=== PATIENT | female | born 1950 | race Caucasian/White ===

== ENCOUNTER 2017-12-05 07:27 | Day surgery (SDC) | payer MEDICARE ==
[~2017-12-05 07:27] MED LIST: ASPI81CH; BENAML20/5 PO; CALCIUM + D SO1 EACH; CHOL10002 PO; VITAMIN B-1100 MG PO; ZOLP10 PO
[2017-12-07 11:07] LABS: Performing Lab SYMBIODX; Test Name HER2 FISH
== END 2017-12-05 23:04 | disposition home or self-care (01) ==
LOC: MOI US 07:27 → MOI MAM 07:45 → MOI US 07:45
PROVIDERS: Family Medicine
PROC: 0HBU3ZX Excision of Left Breast, Percutaneous Approach, Diagnostic (ICD-10-PCS; principal; 2017-12-05)
DX: C50.912 Malignant neoplasm of unspecified site of left female breast (principal); Z17.0 Estrogen receptor positive status [ER+]
CPT/HCPCS: 19083; 77065; 88305; 88360; A4648

== ENCOUNTER 2018-09-20 12:07 | Emergency (ER) | payer MEDICARE ==
[~2018-09-20] VITALS: Ht 165.1 cm; Wt 59.0 kg
[~2018-09-20 12:07] MED LIST changes: -ASPI81CH; +ASPI81CH PO; -CALCIUM + D SO1 EACH; +CALCIUM + D SO1 EACH PO
[2018-09-20 12:51] LABS: BASOPHILS ABSOLUTE AUTO 0.01 K/mm3 (0.00-0.23); BASOPHILS PERCENT AUTO 0 % (0-2); EOSINOPHILS PERCENT AUTO 0 % (0-6); Hematocrit 38.9 % (33.0-51.0); IMMATURE GRAN ABSOLUTE AUTO 0.03 K/mm3 (0.00-0.10); IMMATURE GRAN PERCENT AUTO 0 % (0-1); LYMPHOCYTES ABSOLUTE AUTO 1.43 K/mm3 (0.84-5.20); LYMPHOCYTES PERCENT AUTO 14 % (21-46); MONOCYTES ABSOLUTE AUTO 0.65 K/mm3 (0.16-1.47); MONOCYTES PERCENT AUTO 7 % (4-13); Mean Corpuscular HGB 30.4 pg (26.0-34.0); Mean Corpuscular HGB Conc 33.4 g/dL (31.5-36.5); Mean Corpuscular Volume 91 fL (80-100); Mean Platelet Volume 9.2 fL (9.1-12.4); NEUTROPHILS ABSOLUTE AUTO 7.83 K/mm3 (1.96-9.15); NEUTROPHILS PERCENT AUTO 79 % (41-73); Platelet Count 375 K/mm3 (150-400); RDW Coefficient Variation 13.2 % (11.7-14.2); RDW Standard Deviation 43.8 fL (35.1-46.3); Red Blood Cell Count 4.28 M/mm3 (3.80-5.20); White Blood Cell Count 9.95 K/mm3 (4.00-11.30)
[2018-09-20 13:19] LABS: Alanine Aminotransfer (ALT/SGP 38 U/L (12-78); Albumin, Blood 4.1 g/dL (3.4-5.0); Albumin/Globulin Ratio 1.1 (0.8-1.8); Alk Phos 95 U/L (50-136); Anion Gap 8 mmol/L (6-16); Aspartate Aminotrans (AST/SGOT 10 U/L (12-37); Bilirubin, Total 0.3 mg/dL (0.1-1.0); Blood Urea Nitrogen 23 mg/dL (8-24); Bun/Creatinine Ratio 25.8 (12.0-20.0); CO2, Blood 25 mmol/L (21-32); Calcium, Blood 9.7 mg/dL (8.5-10.1); Chloride, Blood 104 mmol/L (98-108); Creatinine, Blood 0.89 mg/dL (0.40-1.00); Globulin, Blood 3.6 g/dL (2.2-4.0); Glomerular Filtration Rate >60 (60-); Glucose, Blood 198 mg/dL (70-99); Potassium, Blood 3.5 mmol/L (3.5-5.5); Sodium, Blood 137 mmol/L (136-145); Total Protein, Blood 7.7 g/dL (6.4-8.2)
[2018-09-20 15:28] LABS: Source, Urine Clean Catch
[2018-09-20 15:39] LABS: Appearance, Urine Bloody (Clear); Bilirubin, Urine Neg (Neg); Blood, Urine 4+ (Neg); Color, Urine Red (P-Yellow); Glucose Qualitative, Urine Neg (Neg); Ketones, Urine Neg (Neg); Leukocyte Esterase, Urine Neg (Neg); Nitrite, Urine Neg (Neg); Protein, Urine 4+ (Neg); Specific Gravity, Urine 1.015 (1.003-1.022); Urobilinogen, Urine NORM (Normal)
[2018-09-20 16:08] LABS: Bacteria Rare /hpf; Red Blood Cells, Urine TNTC /hpf (0-2); Squamous Epithelial Cells Rare /hpf (Few)
== END 2018-09-20 16:49 | disposition home or self-care (01) ==
LOC: ER 12:07
PROVIDERS: Physician Assistant
DX: N28.1 Cyst of kidney, acquired (principal); E27.8 Other specified disorders of adrenal gland; R91.1 Solitary pulmonary nodule; I10 Essential (primary) hypertension; F17.200 Nicotine dependence, unspecified, uncomplicated; Z88.0 Allergy status to penicillin; Z79.899 Other long term (current) drug therapy; Z85.3 Personal history of malignant neoplasm of breast; Z85.51 Personal history of malignant neoplasm of bladder
CPT/HCPCS: 36415; 74176; 80053; 81001; 83690; 85025; 99284-25

== ENCOUNTER 2021-01-28 19:57 | Inpatient (IN) | payer MEDICARE ==
[~2021-01-28] VITALS: Ht 167.6 cm; Wt 68.8 kg
[~2021-01-28 19:57] MED LIST changes: -ASPI81CH PO; +Aspir 8181 MG PO
[2021-01-28 20:28] LABS: Base Excess Venous 0.1 mmol/L; Bicarbonate Venous 22.8 mmol/L (24.0-30.0); PCO2 Venous 44.1 mmHg (38-42); PO2 Venous 27.8 mmHg (38-42); pH Blood Venous 7.37 (7.34-7.37)
[2021-01-28 20:59] LABS: BASOPHILS ABSOLUTE AUTO 0.04 K/mm3 (0.00-0.23); BASOPHILS PERCENT AUTO 0 % (0-2); Hematocrit 48.2 % (33.0-51.0); Hemoglobin 15.3 g/dL (11.5-16.0); Mean Corpuscular HGB 28.4 pg (26.0-34.0); Mean Corpuscular HGB Conc 31.7 g/dL (31.5-36.5); Mean Corpuscular Volume 90 fL (80-100); Mean Platelet Volume 10.4 fL (9.1-12.4); NRBC ABSOLUTE 0.22 K/mm3 (0.00-0.02); NRBC Auto 1.6 /100 WBC (0.0-0.2); Platelet Count 502 K/mm3 (150-400); RDW Coefficient Variation 15.3 % (11.7-14.2); RDW Standard Deviation 50.2 fL (35.1-46.3); Red Blood Cell Count 5.38 M/mm3 (3.80-5.20); White Blood Cell Count 13.98 K/mm3 (4.00-11.30)
[2021-01-28 21:03] LABS: EOSINOPHILS PERCENT AUTO 0 % (0-6); IMMATURE GRAN PERCENT AUTO 1 % (0-1); LYMPHOCYTES ABSOLUTE AUTO 0.97 K/mm3 (0.84-5.20); LYMPHOCYTES PERCENT AUTO 7 % (21-46); MONOCYTES ABSOLUTE AUTO 0.57 K/mm3 (0.16-1.47); MONOCYTES PERCENT AUTO 4 % (4-13); NEUTROPHILS PERCENT AUTO 87 % (41-73)
[2021-01-28] MEDS ORDERED: AMLODIPINE-BEN1 EAC2 PO (21:07)
[2021-01-28] MEDS ORDERED: LETROZOLE2.5 M3 PO (21:07)
[2021-01-28] MEDS ORDERED: VITAMIN D31000 UNI1 PO (21:09)
[2021-01-28 22:52] LABS: Appearance, Urine Clear (Clear); Bilirubin, Urine 1+ (Neg); Color, Urine Amber (P-Yellow); Glucose Qualitative, Urine Neg (Neg); Ketones, Urine Neg (Neg); Leukocyte Esterase, Urine 1+ (Neg); Nitrite, Urine Neg (Neg); Protein, Urine 3+ (Neg); Source, Urine Catheter; Urobilinogen, Urine 1+ (Normal)
[2021-01-28 22:54] LABS: Blood, Urine 2+ (Neg)
[2021-01-28 22:55] LABS: Amorphous Light (0-Heavy); Bacteria Few /hpf; Red Blood Cells, Urine 0-2 /hpf (0-2); Squamous Epithelial Cells Few /hpf (Few); White Blood Cells, Urine 0-2 /hpf (0-5)
[2021-01-28 23:12] LABS: Albumin, Blood 2.5 g/dL (3.4-5.0); Albumin/Globulin Ratio 0.4 (0.8-1.8); Bun/Creatinine Ratio 33.9 (12.0-20.0); Creatinine, Blood 3.04 mg/dL (0.40-1.00); Globulin, Blood 5.7 g/dL (2.2-4.0); Potassium, Blood 4.1 mmol/L (3.5-5.5); Total Protein, Blood 8.2 g/dL (6.4-8.2); Troponin I 0.229 ng/mL (0.000-0.040)
[2021-01-29 04:08] LABS: Hematocrit 38.2 % (33.0-51.0); Hemoglobin 11.9 g/dL (11.5-16.0); Mean Corpuscular HGB Conc 31.2 g/dL (31.5-36.5); Mean Corpuscular Volume 93 fL (80-100); Mean Platelet Volume 10.6 fL (9.1-12.4); NRBC ABSOLUTE 0.13 K/mm3 (0.00-0.02); NRBC Auto 1.6 /100 WBC (0.0-0.2); Platelet Count 342 K/mm3 (150-400); RDW Coefficient Variation 15.3 % (11.7-14.2); RDW Standard Deviation 51.9 fL (35.1-46.3); White Blood Cell Count 7.98 K/mm3 (4.00-11.30)
[2021-01-29 04:24] LABS: Bun/Creatinine Ratio 28.9 (12.0-20.0); Calcium, Blood 9.1 mg/dL (8.5-10.1); Creatinine, Blood 3.53 mg/dL (0.40-1.00); Potassium, Blood 4.4 mmol/L (3.5-5.5)
[2021-01-29 05:37] LABS: Base Excess Venous -2.6 mmol/L; Bicarbonate Venous 21.4 mmol/L (24.0-30.0); PCO2 Venous 56.1 mmHg (38-42); PO2 Venous 73.7 mmHg (38-42); pH Blood Venous 7.25 (7.34-7.37)
--- NOTE | 2021-01-29 06:08 | NUR ---
SHIFT SUMMARY ASSUMED CARE OF PT AT 0020. PT WAS OBTUNDED. PT WOULD OPEN THEIR EYES OCCASIONALLY BUT THEN FALL BACK ASLEEP. PT ON RESTRAINTS TO PREVENT HER FROM PULLING OFF BIPAP. PT STARTED ON PRECEDEX WHEN SHE GOT ON THE FLOOR. PT DID NOT TOLERATE WELL AND HER MAP WENT FROM 63 TO 53 IN AN HOUR AT 0.5 TITRATION. PT WAS GIVEN A 1000L BOLUS AND PRECEDEX WAS STOPPED. PT MAP IMPROVED. AT AROUND 0500, PT WAS PLACED BACK ON DUE TO INCREASED AGIATION, MAP REMAINS ABOVE 60 @ 0600 WITH 0.2 INFUSING. LUNG SOUNDS HAVE CRACKLES T/O AND VERY TIGHT. PT WAS ON BIPAP T/O THE MORNING. RT CONSULTED WITH CARE. PT BRAXTON IS DRAINING DARK NANCY URINE, PT ONLY HAD ABOUT 200 OUTPUT FROM 0000 TO 0530. PT BUTTOCK IS RED, LOTION APPLIED. CALL LIGHT IN REACH, BED IN LOWEST POSTION, BED ALARM ON.
--- NOTE | 2021-01-29 07:30 | NUR ---
CARE ASSUMPTION PATIENT IS SLEEPING IN ROOM, BUT AWAKENS UPON GENTLE TOUCH TO SHOULDER, BUT FALLS BACK ASLEEP QUICKLY. SPO2 >90% ON BIPAP 20/12 95%. LUNG SOUNDS HAS CRACKLES IN BILATERAL LOWER LOBES. PATIENT HAS SOFT BP. NOTIFED MD OF SOFT BP AND PATIENT STATUS. AN ORDER FOR 1000 LR BOLUS WAS ORDERED. MD CONTACTED FAMILY AT 0805 TO DISCUSS CODE STATUS. PATIENT CODE STATUS CHANGED TO A DNR/DNI. THERE IS A PALLATIVE CARE CONSULT ORDERED. PATIENT RECEIVED 1MG OF IV ATIVAN PER EMAR ORDER FOR ANXIETY AND BECOMING RESTLESS. BED IN LOWEST POSITION, WITH CALL LIGHT IN REACH. WILL CONTINUE TO MONITOR AND PROVIDE CARE.
--- NOTE | 2021-01-29 08:22 | NUR ---
Bedside RN contacted me re: new referal for 70 year old, Covid + woman with multiple other comorbidities, who is declining rapidly with her respiratory status. I contacted and she has been in communication with pt's family who have elected for no CPR and No intubation if pt's condition declines further. Plan to eval and assist with s/s managment and support to pt, family and staff. New orders for change in code status reported to RN and noted in EMR.
[2021-01-29 12:43] LABS: Base Excess Venous -3.4 mmol/L; Bicarbonate Venous 22.4 mmol/L (24.0-30.0); PCO2 Venous 31.9 mmHg (38-42); PO2 Venous 155 mmHg (38-42); pH Blood Venous 7.43 (7.34-7.37)
--- NOTE | 2021-01-29 13:18 | NUR ---
[facility] KEVIN AT APROX 1303 TO NOTIFY OF CRITICAL LACTIC LEVEL AT 2.3. THIS RN CALLED MD ROWELL AT 1306. THIS RN NOTIFED CHARGE NURSE AT 1315 OF LEVEL.
--- NOTE | 2021-01-29 13:30 | NUR ---
Communication with Maria Isabel Yang. EMR Reviewed and case conferenced with pt's Dr and bedside RNs prior to T/c to discuss current status, concerns for low BP, goals of care with Maria Isabel Yang. Trey expressed that she would like the pressors started as planned if needed and to cont attempts at full care, short of CPR or intubation. She states if her mom declines despite these attempts she would consider comfort care at that time. She is aware that her mom has required restraints at times due to confusion to keep O2, mask in place and may be needed to protect IV lines. Trey desires for us to cont to restrain for safely providing care if needed at this time. Plan for update again tomorrow with daughter and reassess goals and plan of care if pt is worsening or not improving. RN updated on my conversation with trey.
--- NOTE | 2021-01-29 18:06 | NUR ---
[facility] CALLED AT 1646 TO NOTIFY OF CRITICAL LACTIC 2.3. BLANKA WHEELER CALLED MD TO NOTIFY. THIS RN NOTIFED WEIGHT CALCULATOR.
--- NOTE | 2021-01-29 18:07 | NUR ---
SHIFT SUMMARY PATIENT IS AWAKE, BUT IS UNABLE TO FOLLOW COMMMANDS, BUT CAN NOD HEAD. PATIENT IS CURRENTLY SLEEPING. PATIENT STARTED TO BECOME AGITATED AND PRECEDYX DRIP RESUMSED AT 0.3. PATIENT BLOOD PRESSURE IS 100/55. VSS. SPO2 >90% ON BIPAP 20/12 90%. TELE SINUS 66. BRAXTON CATH IN PLACE DRAINING WITH GRAVITY CLEAR YELLOW URINE. BED IN LOWEST POSITION AND CALL LIGHT WITHIN REACH.
[2021-01-30 04:05] LABS: Hematocrit 37.9 % (33.0-51.0); Hemoglobin 12.2 g/dL (11.5-16.0); Mean Corpuscular HGB 28.8 pg (26.0-34.0); Mean Corpuscular HGB Conc 32.2 g/dL (31.5-36.5); Mean Corpuscular Volume 89 fL (80-100); Mean Platelet Volume 10.8 fL (9.1-12.4); NRBC Auto 1.1 /100 WBC (0.0-0.2); Platelet Count 267 K/mm3 (150-400); RDW Coefficient Variation 15.2 % (11.7-14.2); RDW Standard Deviation 49.4 fL (35.1-46.3); Red Blood Cell Count 4.24 M/mm3 (3.80-5.20); White Blood Cell Count 8.98 K/mm3 (4.00-11.30)
[2021-01-30 04:24] LABS: Albumin, Blood 1.8 g/dL (3.4-5.0); Anion Gap 6 mmol/L (6-16); Blood Urea Nitrogen 84 mg/dL (8-24); Bun/Creatinine Ratio 44.4 (12.0-20.0); CO2, Blood 24 mmol/L (21-32); Calcium, Blood 8.7 mg/dL (8.5-10.1); Chloride, Blood 128 mmol/L (98-108); Creatinine, Blood 1.89 mg/dL (0.40-1.00); Glomerular Filtration Rate 26 (60-); Glucose, Blood 140 mg/dL (70-99); Phosphorus, Blood 2.9 mg/dL (2.5-4.9); Potassium, Blood 3.6 mmol/L (3.5-5.5); Sodium, Blood 158 mmol/L (136-145)
[2021-01-30 05:08] LABS: BAND PERCENT MAN 21 % (0-8); BASOPHILS PERCENT MAN 0 % (0-2); EOSINOPHILS PERCENT MAN 0 % (0-6); LYMPHOCYTES ABSOLUTE MAN 0.53 K/mm3 (0.84-5.20); LYMPHOCYTES PERCENT MAN 6 % (21-46); MONOCYTES ABSOLUTE MAN 0.17 K/mm3 (0.16-1.47); MONOCYTES PERCENT MAN 2 % (4-13); MYELOCYTE ABSOLUTE MAN 0.08 K/mm3 (0.00-0.00); MYELOCYTE PERCENT MAN 1 % (0-0); NEUTROPHILS ABSOLUTE MAN 8.17 K/mm3 (1.96-9.15); SEG NEUTROPHILS PERCENT MAN 70 % (41-73); TOTAL CELLS COUNTED 100
--- NOTE | 2021-01-30 06:16 | NUR ---
LYING IN SEMI FOWLERS WITH EYES CLOSED. HAS RESTED WELL THIS SHIFT. BILAT SOFT WRIST RESTRAINTS REMAIN IN PLACE. BIPAP AT 18/10 90% FIO2, TOLERATING WELL. BRAXTON CATH IN PLACE, DRAINING CONC CLEAR NANCY URINE TO GRAVITY. ADEQUATE OUTPUT NOTED FOR SHIFT. LR CONTINUES TO INFUSE AT 100ML/HR. PRECEDEX INFUSING AT 0.3 MCG/KG/HR. ABLE TO ANSWER QUESTIONS BY NODDING HER HEAD. HAS BEEN AFEBRILE VIA TEMP BRAXTON THIS SHIFT. REPOSITIONED AND ORAL CARE COMPLTETED. DENIES SOB, DISCOMFORT, OR PAIN AT THIS TIME. SAFETY MEASURES IN PLACE. WILL CONTINUE TO MONITOR AND GIVE HAND OFF TO ONCOMING SHIFT USING SBAR DURING BEDSIDE REPORT.
--- NOTE | 2021-01-30 09:30 | NUR ---
Case conferenced with pt's and RICKEY this am. to call dominik regarding pt's current tenuous status and prognosis. Will remain available to support pt/dominik, staff as needed.
[2021-01-30 10:46] LABS: Base Excess Venous -0.9 mmol/L; Bicarbonate Venous 24.1 mmol/L (24.0-30.0); PCO2 Venous 33.5 mmHg (38-42); PO2 Venous 90.4 mmHg (38-42); pH Blood Venous 7.45 (7.34-7.37)
--- NOTE | 2021-01-30 17:59 | NUR ---
SUMMARY PT REMAINS SEDATED ON PRECEDEX AND ON THE BIPAP, SETTINGS 18/10 90% FIO2, PRECEDEX IS AT 0.3, PT RESTING QUIETLY WHEN LEFT ALONE, WHEN CARES DONE SUCH REPOSITION AND ORAL CARE, PT WILL GET VERY AGITATED AND THRASHES AROUND, DOES NOT FOLLOW ANY COMMANDS, PT BRADYCARDIC FOR MOST OF THE DAY, MD AWARE, NO ACUTE CHANGES, WILL CONT TO MONITOR
[2021-01-31 04:09] LABS: BASOPHILS ABSOLUTE AUTO 0.03 K/mm3 (0.00-0.23); BASOPHILS PERCENT AUTO 0 % (0-2); Hematocrit 38.6 % (33.0-51.0); Hemoglobin 12.5 g/dL (11.5-16.0); LYMPHOCYTES ABSOLUTE AUTO 0.37 K/mm3 (0.84-5.20); LYMPHOCYTES PERCENT AUTO 3 % (21-46); MONOCYTES ABSOLUTE AUTO 0.18 K/mm3 (0.16-1.47); MONOCYTES PERCENT AUTO 2 % (4-13); Mean Corpuscular HGB 28.5 pg (26.0-34.0); Mean Corpuscular HGB Conc 32.4 g/dL (31.5-36.5); Mean Corpuscular Volume 88 fL (80-100); NRBC ABSOLUTE 0.08 K/mm3 (0.00-0.02); NRBC Auto 0.7 /100 WBC (0.0-0.2); Platelet Count 272 K/mm3 (150-400); RDW Standard Deviation 48.4 fL (35.1-46.3); Red Blood Cell Count 4.38 M/mm3 (3.80-5.20)
[2021-01-31 04:12] LABS: EOSINOPHILS PERCENT AUTO 0 % (0-6); IMMATURE GRAN ABSOLUTE AUTO 0.11 K/mm3 (0.00-0.10); IMMATURE GRAN PERCENT AUTO 1 % (0-1); NEUTROPHILS ABSOLUTE AUTO 10.11 K/mm3 (1.96-9.15); NEUTROPHILS PERCENT AUTO 94 % (41-73)
[2021-01-31 04:24] LABS: Albumin, Blood 1.8 g/dL (3.4-5.0); Anion Gap 4 mmol/L (6-16); Blood Urea Nitrogen 65 mg/dL (8-24); Bun/Creatinine Ratio 46.4 (12.0-20.0); CO2, Blood 26 mmol/L (21-32); Calcium, Blood 8.9 mg/dL (8.5-10.1); Chloride, Blood 125 mmol/L (98-108); Glomerular Filtration Rate 37 (60-); Glucose, Blood 230 mg/dL (70-99); Potassium, Blood 3.5 mmol/L (3.5-5.5); Sodium, Blood 155 mmol/L (136-145)
--- NOTE | 2021-01-31 06:10 | NUR ---
SHIFT SUMMARY PATIENT CONFUSED AND AGITATED UPON ASSESSMENT. NO FOLLOWING COMMANDS. LOTS OF MOANING AND PULLING AT LINES WHEN AWOKEN. BILAT WRIST RESTRAINTS AND PRECEDEX DRIP INUFSING @ 0.3MCG/KG/HR TO HELP WITH THIS. VSS. SB IN THE 50'S MOST OF THE SHIFT. ON CPAP WITH 90% FIO2 SATING MID 90'S. TACHYPENIC WHEN AGITATED 30S-40'S. Q2H ORAL CARE AND TURNS PERFORMED. NPO. BRAXTON DRAINING TO GRAVITY. NO ACUTE CONCERNS AT THIS TIME WILL CONTINUE TO MONITOR UNTIL REPORT GIVEN TO CESILIA WHEELER.
[2021-01-31 09:47] LABS: Base Excess Venous 1.1 mmol/L; Bicarbonate Venous 25.5 mmol/L (24.0-30.0); PCO2 Venous 36.5 mmHg (38-42); PO2 Venous 101 mmHg (38-42); pH Blood Venous 7.45 (7.34-7.37)
--- NOTE | 2021-01-31 18:48 | NUR ---
NURSING SHIFT SUMMARY: [id number]: SAFE HANDOFF REC'D, PT ADMITTED FOR ACUTE RESPIRATORY FAUILURE DUE TO COVID 19, CURRENTLY ON BIPAP AT 18/10 AT 90% FIO2. PT RESTING IN BED, PRECEDEX GTT REMAINS IN USE AT 0.6 MCG/KG/HR FOR AGITATION. PT IS CALM AT THIS TIME, BILATERAL SOFT WRIST RESTRAINTS IN PLACE FOR SAFETY OF LINES AND TUBES, Q2 TURNS, BED ALARM ON FOR SAFETY WELL. 1200: NO SIGNICANT CHANGES IN ASSESSMENT OVERALL, ATTEMPTING TO WEAN BIPAP SETTINGS PER RT AND PT TOLERATING. 1700: PIVs BOTH LEAKING AND DC'D, NEW PIV PLACED TO RW, PT TOLERATED WELL. PREDEDEX GTT DECREASED TO 0.5 PT HAS BEEN SLEEPY AND ALSO NOTED TO HAVE TRANSIENT BRADYCARDIA WITH RATE INTO THE UPPER 30S BRIEFLY (HAS BEEN 40-50S). [id number]: PREDEDEX GTT TURNED DOWN TO 0.3 AND THEN TURNED TO STANDBY DUE TO BRADYCARDIA.
[2021-02-01 04:06] LABS: BASOPHILS ABSOLUTE AUTO 0.03 K/mm3 (0.00-0.23); BASOPHILS PERCENT AUTO 0 % (0-2); EOSINOPHILS PERCENT AUTO 0 % (0-6); Hematocrit 37.9 % (33.0-51.0); Hemoglobin 12.6 g/dL (11.5-16.0); IMMATURE GRAN PERCENT AUTO 1 % (0-1); LYMPHOCYTES ABSOLUTE AUTO 0.44 K/mm3 (0.84-5.20); LYMPHOCYTES PERCENT AUTO 4 % (21-46); MONOCYTES ABSOLUTE AUTO 0.29 K/mm3 (0.16-1.47); MONOCYTES PERCENT AUTO 3 % (4-13); Mean Corpuscular HGB 29.4 pg (26.0-34.0); Mean Corpuscular HGB Conc 33.2 g/dL (31.5-36.5); Mean Corpuscular Volume 88 fL (80-100); Mean Platelet Volume 11.1 fL (9.1-12.4); NEUTROPHILS ABSOLUTE AUTO 9.75 K/mm3 (1.96-9.15); NEUTROPHILS PERCENT AUTO 92 % (41-73); NRBC ABSOLUTE 0.03 K/mm3 (0.00-0.02); NRBC Auto 0.3 /100 WBC (0.0-0.2); Platelet Count 266 K/mm3 (150-400); RDW Standard Deviation 47.9 fL (35.1-46.3); Red Blood Cell Count 4.29 M/mm3 (3.80-5.20); White Blood Cell Count 10.61 K/mm3 (4.00-11.30)
[2021-02-01 04:17] LABS: Albumin, Blood 1.9 g/dL (3.4-5.0); Anion Gap 7 mmol/L (6-16); Blood Urea Nitrogen 47 mg/dL (8-24); Bun/Creatinine Ratio 47.8 (12.0-20.0); CO2, Blood 25 mmol/L (21-32); Calcium, Blood 8.5 mg/dL (8.5-10.1); Chloride, Blood 120 mmol/L (98-108); Creatinine, Blood 0.98 mg/dL (0.40-1.00); Glomerular Filtration Rate 56 (60-); Glucose, Blood 186 mg/dL (70-99); Phosphorus, Blood 2.8 mg/dL (2.5-4.9); Potassium, Blood 3.3 mmol/L (3.5-5.5); Sodium, Blood 152 mmol/L (136-145)
--- NOTE | 2021-02-01 06:20 | NUR ---
SHIFT SUMMARY PATIENT IS A CONFUSED LADY WHO IS NOT FOLLOWING COMMANDS, NODS TO SOME QUESTIONS, WITH MOANING AND RESTLESSNESS UPON AWAKING FOR ANY ACTIVITIES.GALAN. BILAT WRIST RESTRAINTS IN PLACE. PRECEDEX DRIP RESTARTED PATIENT RESTLESS AND TACHYPENIC IN THE 40'S AFTER ANY CARE. VSS. LOULOU AT TIMES IN 50'S. KEEPING PLENTY OF BLANKETS ON PATIENT HER TEMP DIPS EASILY. MAINTAINING SATS IN MID 90'S ON CPAP WITH 70%FIO2. Q2H ORAL CARE AND TURNS PERFORMED. NPO UNTIL OXYGEN DEMANDS DOWN. BRAXTON PATENT DRAINING TO GRAVITY. NO ACUTE CONCERNS AT THIS TIME. WILL CONTINUE PLAN OF CARE UNTIL REPORT GIVEN TO CESILIA WHEELER.
--- NOTE | 2021-02-01 18:37 | NUR ---
SHIFT SUMMARY PT IS ON CPAP 17L AND FIO2 70%. OVER THE PAST COUPLE OF HOURS I HAVE BEEN IN CONTACT WITH DRY PLASTERER HELPER AND EXPRESSED CONCERNS DUE TO PT BREATHING WITH EXCESSIVE ACCESSORY MUSCLE USE ALONG WITH AN INTENSE ABDOMEN USE BREATHING. PROVIDER WAS NOTIFIED. TELEPHONE ORDER WAS GIVEN FOR STAT ABG. DRY PLASTERER HELPER IS IN PT'S ROOM PERFORMING ABG. NURSES WILL CONTINUE TO MONITOR.
[2021-02-01 19:04] LABS: PCO2 Arterial 32.2 mmHg (35-45); PO2 Arterial 69.6 mmHg (80-100); pH Blood Arterial 7.47 (7.35-7.45)
[2021-02-02 04:10] LABS: BASOPHILS ABSOLUTE AUTO 0.03 K/mm3 (0.00-0.23); BASOPHILS PERCENT AUTO 0 % (0-2); Hematocrit 37.8 % (33.0-51.0); Hemoglobin 12.3 g/dL (11.5-16.0); LYMPHOCYTES ABSOLUTE AUTO 0.38 K/mm3 (0.84-5.20); LYMPHOCYTES PERCENT AUTO 4 % (21-46); MONOCYTES ABSOLUTE AUTO 0.28 K/mm3 (0.16-1.47); MONOCYTES PERCENT AUTO 3 % (4-13); Mean Corpuscular HGB 28.2 pg (26.0-34.0); Mean Corpuscular HGB Conc 32.5 g/dL (31.5-36.5); Mean Corpuscular Volume 87 fL (80-100); Mean Platelet Volume 11.3 fL (9.1-12.4); NRBC ABSOLUTE 0.04 K/mm3 (0.00-0.02); NRBC Auto 0.4 /100 WBC (0.0-0.2); Platelet Count 238 K/mm3 (150-400); RDW Coefficient Variation 14.8 % (11.7-14.2); RDW Standard Deviation 46.6 fL (35.1-46.3); Red Blood Cell Count 4.36 M/mm3 (3.80-5.20); White Blood Cell Count 9.16 K/mm3 (4.00-11.30)
[2021-02-02 04:23] LABS: EOSINOPHILS PERCENT AUTO 0 % (0-6); IMMATURE GRAN PERCENT AUTO 1 % (0-1); NEUTROPHILS ABSOLUTE AUTO 8.37 K/mm3 (1.96-9.15); NEUTROPHILS PERCENT AUTO 91 % (41-73)
[2021-02-02 04:27] LABS: Albumin, Blood 1.9 g/dL (3.4-5.0); Anion Gap 6 mmol/L (6-16); Blood Urea Nitrogen 42 mg/dL (8-24); Bun/Creatinine Ratio 39.3 (12.0-20.0); CO2, Blood 25 mmol/L (21-32); Calcium, Blood 8.5 mg/dL (8.5-10.1); Chloride, Blood 120 mmol/L (98-108); Creatinine, Blood 1.07 mg/dL (0.40-1.00); Glomerular Filtration Rate 50 (60-); Glucose, Blood 156 mg/dL (70-99); Phosphorus, Blood 3.1 mg/dL (2.5-4.9); Sodium, Blood 151 mmol/L (136-145)
--- NOTE | 2021-02-02 07:12 | NUR ---
SHIFT SUMMARY PATIENT IS CONFUSED LADY WHO IS NOT FOLLOWING COMMANDS, NODS TO QUESTIONS, WITH SOME MOANS AND RESTLESSNESS UPON WAKING FOR ANY CARE. GALAN. BILAT WRIST RESTRAINTS IN PLACE. PRECEDEX DRIP RUNNING AT 0.5MCG/KG/HR ALL NIGHT WITHOUT ISSUE. VSS. NSR ON THE MONITOR. REMAINS NPO UNTIL O2 DEMANDS DOWN. BRAXTON IN PLACE DRAINING TO GRAVITY. FLUIDS RUNNING PER ORDER. Q2H TURNS AND ORAL CARE PERFORMED. NO ACUTE CONCERNS AT THIS TIME. REPORT HANDED OFF TO MEJIA LOMAS RN.
--- NOTE | 2021-02-02 18:53 | NUR ---
SHIFT SUMMARY PT REMAINS ON CPAPA AT KKK105% AND SPO2 ARE IN THE MID 90. PT FLUCTUATES BETWEEN NSR AND SINUS LOULOU @ ~55, PT IS CURRENTLY ON PRECEDEX AT 0.5 MCG. PT NEEDS TO BE PRONE, NURSE WORKING WITH DOUGHNUT MAKER NURSE TO IMPLEMENT PRONING. REPORT WAS GIVEN.
[2021-02-03 04:22] LABS: Base Excess Venous 1.1 mmol/L; Bicarbonate Venous 25.2 mmol/L (24.0-30.0); PCO2 Venous 35.9 mmHg (38-42); PO2 Venous 41.4 mmHg (38-42); pH Blood Venous 7.45 (7.34-7.37)
[2021-02-03 04:42] LABS: Hematocrit 37.4 % (33.0-51.0); Hemoglobin 12.2 g/dL (11.5-16.0); Mean Corpuscular HGB 28.5 pg (26.0-34.0); Mean Corpuscular HGB Conc 32.6 g/dL (31.5-36.5); Mean Corpuscular Volume 87 fL (80-100); Mean Platelet Volume 11.7 fL (9.1-12.4); Platelet Count 213 K/mm3 (150-400); RDW Coefficient Variation 14.9 % (11.7-14.2); RDW Standard Deviation 47.3 fL (35.1-46.3); Red Blood Cell Count 4.28 M/mm3 (3.80-5.20)
[2021-02-03 05:01] LABS: Bun/Creatinine Ratio 43.2 (12.0-20.0); Calcium, Blood 8.2 mg/dL (8.5-10.1); Creatinine, Blood 0.97 mg/dL (0.40-1.00)
--- NOTE | 2021-02-03 05:16 | NUR ---
END OF SHIFT SUMMARY: PATIENT HAS BEEN RESTING COMFORTABLY ON CPAP OVERNIGHT AT 70%. LUNG SOUNDS ARE DIMINISHED IN ALL LOBES. O2 MONITOR INSIDE THE ROOM HAS BEEN READING ALMOST 10 POINTS LOWER THAN THE OUTSIDE O2 MONITOR. SPOKE WITH CHARGE ABOUT MY CONCERN AND WE PUT A NEW SENSOR ON THE O2 SENSOR FOR OUTSIDE. IT IS STILL OFF BY ABOUT 4-5 POINTS BUT MUCH BETTER THAN BEFORE. UNABLE TO SUCTION ANYTHING OUT OF PATIENT BUT SHE DOES HAVE A WEAK COUGH. THE MOST SHE HAS DONE FOR ME WAS AT 0400. SHE SHOOK HER HEAD THAT SHE WAS DOING OKAY AND THEN CLOSED EYES AGAIN. DOES NOT FOLLOW COMMANDS. RESTRAINTS D/C DUE TO LACK OF MOVEMENT FROM EXTREMITIES. VITALS HAVE REMAINED STABLE OTHERWISE. ADEQUATE URINE OUTPUT. NO CALLS FROM FAMILY
[2021-02-03 05:40] LABS: BAND PERCENT MAN 1 % (0-8); BASOPHILS PERCENT MAN 0 % (0-2); EOSINOPHILS PERCENT MAN 0 % (0-6); LYMPHOCYTES ABSOLUTE MAN 0.16 K/mm3 (0.84-5.20); LYMPHOCYTES PERCENT MAN 2 % (21-46); MONOCYTES ABSOLUTE MAN 0.24 K/mm3 (0.16-1.47); MONOCYTES PERCENT MAN 3 % (4-13); SEG NEUTROPHILS PERCENT MAN 94 % (41-73); TOTAL CELLS COUNTED 100
--- NOTE | 2021-02-03 08:30 | NUR ---
INITIAL ASSESSMENT PATIENT LYING IN BED QUIETLY UPON ENTERING ROOM. PATIENT DOES OPEN EYES SLIGHTLY TO VERBAL STIMULI. PATIENT CLOSES EYES IMMEDIATELY AFTER. PATIENT NOT ANSWERING QUESTIONS OR FOLLOWING ANY COMMANDS AT THIS TIME. PATIENT HAS HISTORY OF DEMENTIA. PATIENT APPEARS TO HAVE FLAT/ WITHDRAWN AFFECT. SCLERAL EDEMA NOTED. PUPILS UNABLE TO BE ASSESSED PATIENT CLOSES EYES TIGHTLY WHEN RN TRIES TO ASSESS. PATIENT ON CPAP AT 14 AND 100% FIO2. LUNGS CLEAR IN UPPER LOBES, RLL DIMINISHED, LLL CRACKLES. PATIENT IN SR, HR IN THE 70S. SBP IN THE 150S. ABD SOFT WITH HYPOACTIVE BOWEL SOUNDS NOTED. PATIENT NPO. DATE OF LAST BM UNKNOWN. BRAXTON DRAINING DARK YELLOW COLORED URINE. SKIN PALE AND FRAGILE. SACRUM REDDENED. BILAT MASTECTOMY NOTED. SCATTERED BRUISES NOTED. PURPLE WOUND TO BRIDGE OF NOSE NOTED; PROTECTIVE GEL PAD IN PLACE. PATIENT BEING REPOSITIONED Q2H AND PRN. PRECEDEX INFUSING AT 0.3 MCG/ KG/ HOUR. D5W AT 50 MLS/ HOUR. BED LOW, CALL LIGHT IN REACH. WILL CONTINUE TO MONITOR PATIENT FREQUENTLY THROUGHOUT SHIFT.
--- NOTE | 2021-02-03 12:30 | NUR ---
PATIENT AFEBRILE. HR 70S TO 80S. SBP 130S TO 150S. CRACKLES NOTED IN BILAT LOWER LUNG LOBES. PATIENT ON 100% FIO2 FOR ORAL CARE AND REPOSITIONING. PATIENT ABLE TO BE TITRATED BACK DOWN TO 70% FIO2 AFTER A FEW MINUTES OF REST. BLOOD SUGAR 253; COVERAGE GIVEN. NO SIGNS OF PAIN NOTED. NO OTHER ACUTE CHANGES TO NOTE ON AT THIS TIME. WILL CONTINUE TO MONITOR.
--- NOTE | 2021-02-03 15:35 | NUR ---
DR. PEREIRA UPDATED PATIENT'S DAUGHTER ON PATIENT STATUS. NURSE THEN CALLED TO FOLLOW UP. NURSE ANSWERED QUESTIONS ABOUT COMFORT CARE. DAUGHTER HAS NO FURTHER QUESTIONS AT THIS TIME. DAUGHTER JAMIL PHONE NUMBER [phone].
--- NOTE | 2021-02-03 16:40 | NUR ---
PATIENT AFEBRILE. HR 60S TO 70S. SBP 1-TEENS TO 130S. D5W DC'D AND D5 1/2 NS STARTED AT 100 MLS/ HOUR. PATIENT REMAINS ON SAME VENT SETTINGS. NO SIGNS OF PAIN NOTED AT THIS TIME. WILL CONTINUE TO MONITOR.
--- NOTE | 2021-02-03 18:39 | NUR ---
SHIFT SUMMARY PATIENT REMAINED RESPONDING TO VERBAL STIMULI. PATIENT DID NOT ANSWER ANY QUESTIONS OR FOLLOW ANY COMMANDS. PATIENT REMAINED AFEBRILE. PATIENT HAD NO COMPLAINTS OR SIGNS OF PAIN/ DISCOMFORT DURING SHIFT. PATIENT ON CPAP AT 14 AND 70% FIO2. PATIENT INCREASED TO 100% FIO2 OCCASIONALLY WITH REPOSITIONING AND ORAL CARE TO MAINTAIN SATS 90% AND GREATER. LOWER LOBES REMAINED CRACKLY AND UPPER LOBES CLEAR. PATIENT REMAINED IN SR, HR 60S TO 80S. SBP 1-TEENS TO 160S. PATIENT REMAINED NPO. PARENTERAL NUTRITION TO BE STARTED BY DIE REPAIR. NO BM THIS SHIFT. BRAXTON DRAINED 480 MLS OF DARK YELLOW COLORED URINE. NO CHANGES TO SKIN NOTED THIS SHIFT. PATIENT REPOSITIONED Q2H. PRECEDEX AT 0.4 MCG/ KG/ HOUR. D5 1/2 NS AT 100 MLS/ HOUR. BLOOD SUGARS 253 AND 221. PATIENT HAD COMPLETE BED BATH. PATIENT APPEARS COMFORTABLE AT THIS TIME. BED LOW, CALL LIGHT IN REACH. WILL GIVEN REPORT TO ASSUMING DELINQUENCY PREVENTION OFFICER NURSE SHORTLY.
--- NOTE | 2021-02-04 07:22 | NUR ---
SHIFT SUMMARY PT SPONTANEOUSLY OPENS EYES AND MOVES EXTREMITIES, DOES NOT RESPOND TO VERBAL STIMULI. APPEARS TO BECOME MORE AWAKE WITH PAINFUL STIMULI, OTHERWISE LITTLE RESPONSIVENESS. PT MOVES ALL EXTREMITIES IN THE NIGHT. AFTER PRECEDEX TITRATED BACK DOWN TO 0.2 MCG, PT BECOMES MORE AWAKE, RR INCREASES. PERIODS OF APNEA NOTED WHEN PRECEDEX UP TO 0.4 AT START OF SHIFT AND PT HR DOWN TO 50 BPM. SBP 120'S-140'S THROUGH MOST OF SHIFT. CBGS 200-300. COVERED PER SLIDING SCALE AND ADMIN OF LONG ACTING INSULIN. D5 1/2 NS INFUSING PER ORDERS, PRECEDEX CONTINUES AT 0.2 MCG, TKO NS INFUSES AT 10 MLS/HR. BRAXTON DRAINING ORANGE-NANCY URINE WITH SOME PINK SEDIMENT. CPAP AT 14, FIO2 70%.
--- NOTE | 2021-02-04 08:22 | NUR ---
ASsumption of Care Pt is resting in bed. She opens her eyes to her name. She is on CPAP @ 70% with sats in the 90's. Precedex was trialed off. Maintenance fluids are running as ordered. Her garrison is patent with dark yellow urine output. She has her call light in reach and her bed alarm is on for safety.
--- NOTE | 2021-02-04 10:44 | NUR ---
Update Per Dr Meyers the pt was trialed on the high flow AIRVO. She quickly desatuated and had to be put back on the CPAP. The RT assisted with this and was at the bedside. The pt is now back on the CPAP with sats in the 90's. IV nutrition was also started as ordered.
--- NOTE | 2021-02-04 13:53 | NUR ---
UPDATE Pt heart rate has slowly been increasing since this morning. Dr Meyers was notified and gave an order to DC the hydralazine as it can cause the heart rate to increase and it had been given for HTN. A new order was given for Labetalol for SBP greater than 160. Dr Meyers said to watch the heart rate for now and the television inspector was updated with this info as she has been calling with changes.
--- NOTE | 2021-02-04 16:34 | NUR ---
Shift Summary Pt remains unchanged from this morning. She does open her eyes to her name but is does seem to be spontaneous. Dr Meyers is aware and he did order a head CT. We trialed her on tony AIRVO but she couldnt maintain her sats and so she has been back on the CPAP @ 70% with sats in the high 90's. the clinimix with lipids are running as ordered. The pt has been repositioned throughout the shift and oral care has been done as well. Her garrison is patent with dark yellow urine output. She has her call light in reach and the bed alarm on for safety.
[2021-02-05 04:20] LABS: BASOPHILS ABSOLUTE AUTO 0.03 K/mm3 (0.00-0.23); BASOPHILS PERCENT AUTO 0 % (0-2); EOSINOPHILS PERCENT AUTO 0 % (0-6); Hematocrit 38.1 % (33.0-51.0); Hemoglobin 12.3 g/dL (11.5-16.0); IMMATURE GRAN ABSOLUTE AUTO 0.16 K/mm3 (0.00-0.10); IMMATURE GRAN PERCENT AUTO 1 % (0-1); LYMPHOCYTES ABSOLUTE AUTO 0.28 K/mm3 (0.84-5.20); LYMPHOCYTES PERCENT AUTO 2 % (21-46); MONOCYTES ABSOLUTE AUTO 0.54 K/mm3 (0.16-1.47); MONOCYTES PERCENT AUTO 3 % (4-13); Mean Corpuscular HGB Conc 32.3 g/dL (31.5-36.5); Mean Corpuscular Volume 87 fL (80-100); Mean Platelet Volume 12.2 fL (9.1-12.4); NEUTROPHILS ABSOLUTE AUTO 15.13 K/mm3 (1.96-9.15); NEUTROPHILS PERCENT AUTO 94 % (41-73); Platelet Count 345 K/mm3 (150-400); RDW Coefficient Variation 14.7 % (11.7-14.2); RDW Standard Deviation 47.1 fL (35.1-46.3); Red Blood Cell Count 4.39 M/mm3 (3.80-5.20); White Blood Cell Count 16.14 K/mm3 (4.00-11.30)
[2021-02-05 04:28] LABS: Base Excess Venous -1.2 mmol/L; Bicarbonate Venous 23.5 mmol/L (24.0-30.0); PCO2 Venous 39.4 mmHg (38-42); PO2 Venous 124 mmHg (38-42); pH Blood Venous 7.39 (7.34-7.37)
[2021-02-05 04:44] LABS: Anion Gap 7 mmol/L (6-16); Blood Urea Nitrogen 45 mg/dL (8-24); Bun/Creatinine Ratio 50.9 (12.0-20.0); CO2, Blood 25 mmol/L (21-32); Calcium, Blood 8.3 mg/dL (8.5-10.1); Chloride, Blood 116 mmol/L (98-108); Creatinine, Blood 0.88 mg/dL (0.40-1.00); Free Thyroxine 1.31 ng/dL (0.70-1.60); Glomerular Filtration Rate >60 (60-); Glucose, Blood 341 mg/dL (70-99); Magnesium, Blood 2.6 mg/dL (1.6-2.4); Phosphorus, Blood 2.8 mg/dL (2.5-4.9); Potassium, Blood 3.4 mmol/L (3.5-5.5); Sodium, Blood 148 mmol/L (136-145); Triglycerides 216 mg/dL (30-160)
--- NOTE | 2021-02-05 06:19 | NUR ---
SHIFT SUMMARY PATIENT IS A CONFUSED LADY WHO IS NOT FOLLOWING COMMANDS, NODS TO SOME QUESTIONS, WITH SOME MOANS AND RESTLESSNESS UPON WAKING FOR ANY CARE. GALAN.VSS. TACHY AT TIMES ON THE MONITOR AND SUSTAINED ABOVE 120 FOR A BIT SO LET MD KNOW AND LABETOLOL NOW ABLE TO BE USED FOR HR PRN WELL BP. GAVE 5MG OF THIS WITH GOOD RESULT. STILL TACHY IN LOW HUNDREDS AT TIMES. ON CPAP WITH 50% FIO2 SATING MID 90'S ALL NIGHT. Q2H ORAL CARE AND TURNS. NPO. BRAXTON DRAINING TO GRAVITY. CLINIMIX INFUSING PER ORDER. NO ACUTE CONCERNS AT THIS TIME. WILL CONTINUE PLAN OF CARE UNTIL REPORT GIVEN TO CESILIA WHEELER.
--- NOTE | 2021-02-05 08:00 | NUR ---
I went in the room to fingerstick a blood sugar, and pt was noted lying supine, head turned to the right side, appeared very lethargic, with dark red liquid inside her bipap mask, and covering the pillow under the right side of her face, and underneath her neck and right shoulder. Spo2 WNL, pt still receiving bipap support. Oral care and suctioning was done, and then pt was given hygeine care, linen change, and changed the soiled bipap straps and mask for clean ones. Pt at that time also noted to have a black/brown formed BM. Primary RN Johnny Crum was notified of the pt's condition and care provided. Zofran was administered by [facility] to prevent further emesis. PT was repositioned on her right side to prevent aspiration in the event of emesis.
--- NOTE | 2021-02-05 08:50 | NUR ---
[facility] Float nurses assisting this morning notified this nurse that the pt had a large blood tinged emesis and when they went in to clean her up she had a large dark stool. Dr Meyers was called and he came to see the pt at the bedside. The pt eyes are closed now and she does not open them to her name or to pain. Her color is pale. Her RR is in the 30's heart rate is 120 and BP is 98/62. Her garrison remains intact with chuckie urine output. Dr Meyers is calling the family. The bed alarm is on for pt safety.
--- NOTE | 2021-02-05 12:17 | NUR ---
Update Palliative care as spoken with the family. They are talking with each other and then would like to come and visit with the pt this afternoon.
--- NOTE | 2021-02-05 13:40 | NUR ---
Received a call from Dr. Meyers this am. He requests I speak to pt's family regarding pt's deteriorating condition. It's clear the pt doesn't tolerate airvo and she has continued to decline on bipap. Family is understanding that pt does not want intubation, and are prepared for comfort care for patient. I spoke to pt's daughter and this am, and they were hoping to wait for pt's son to come from [place], but they haven't been able to reach him thus far. They are agreeable to comfort care now, but with the understanding we will leave the bipap on for now, as they family won't be here for around [address] Meyers and Johnny Gastelum, bedside RN are aware, and Johnny will medicate pt for pain and anxiety prn.
--- NOTE | 2021-02-05 13:49 | NUR ---
Update Pt continues to not be alert. Her stool is tarry and foul in odor and is very frequent. She remains pale. Dr Meyers has Dcd most of her medications. Palliative care has spoken with the daughter who has agreed to transition the pt to comfort care. Pt has been re-positioned frequently throughout the shift along with oral care. We are awaiting the arrival of her family.
--- NOTE | 2021-02-05 17:03 | NUR ---
SHIFT SUMMARY see previous notes Daughters are now at the bedside and the pt is on comfort care. She has been medicated for her pain and it does appear to be effective for now. The daughters have requested the pt be left on the o2 for now. There are two more family members planning on coming to visit. The daughters verbalize an understanding of how to call if they need any assistance while at the bedside.
--- NOTE | 2021-02-06 00:12 | NUR ---
PATIENT COMFORT MEASURES UPON ASSUMPTION OF PATIENT. FAMILY AT BEDSIDE UNTIL ABOUT 2100. PATIENT TIME OF 3. POST MORTEM CARE PERFORMED AND FAMILY INFORMED. [facility] PICKED BY FAMILY. MORTUARY PICKED UP PATIENT AT APPROXIMETLY 2355.
== END 2021-02-06 00:09 | DRG 871 ==
LOC: ER 19:57 → SURS 01-29 00:18 → PCU 01-29 00:18 → SURS 01-29 00:21
PROVIDERS: Family Medicine; Internal Medicine; ADMIT Internal Medicine
PROC: 5A09357 Assistance with Respiratory Ventilation, Less than 24 Consecutive Hours, Continuous Positive Airway Pressure (ICD-10-PCS; principal; 2021-01-29)
PROC: 8E0ZXY6 Isolation (ICD-10-PCS; 2021-01-29)
PROC: 3E0333Z Introduction of Anti-inflammatory into Peripheral Vein, Percutaneous Approach (ICD-10-PCS; 2021-01-29)
PROC: XW033E5 Introduction of Remdesivir Anti-infective into Peripheral Vein, Percutaneous Approach, New Technology Group 5 (ICD-10-PCS; 2021-01-29)
DX: A41.89 Other specified sepsis (principal); U07.1 COVID-19; J12.82 Pneumonia due to coronavirus disease 2019; J96.01 Acute respiratory failure with hypoxia; G92 Toxic encephalopathy; R65.21 Severe sepsis with septic shock; Z51.5 Encounter for palliative care; Z66 Do not resuscitate; I26.99 Other pulmonary embolism without acute cor pulmonale; I21.A1 Myocardial infarction type 2; N17.9 Acute kidney failure, unspecified; E87.0 Hyperosmolality and hypernatremia; E87.1 Hypo-osmolality and hyponatremia; G93.1 Anoxic brain damage, not elsewhere classified; E83.39 Other disorders of phosphorus metabolism; E87.5 Hyperkalemia; Z78.1 Physical restraint status; E88.09 Other disorders of plasma-protein metabolism, not elsewhere classified; I12.9 Hypertensive chronic kidney disease with stage 1 through stage 4 chronic kidney disease, or unspecified chronic kidney disease; F03.90 Unspecified dementia, unspecified severity, without behavioral disturbance, psychotic disturbance, mood disturbance, and anxiety; N18.30 Chronic kidney disease, stage 3 unspecified; Z85.3 Personal history of malignant neoplasm of breast; Z90.89 Acquired absence of other organs; Z90.11 Acquired absence of right breast and nipple; Z87.891 Personal history of nicotine dependence; Z88.0 Allergy status to penicillin; Z79.82 Long term (current) use of aspirin; Z79.899 Other long term (current) drug therapy; Z85.51 Personal history of malignant neoplasm of bladder
CPT/HCPCS: 36415; 51702; 70450; 71045; 80048; 80053; 80069; 81001; 82728; 82803; 82947; 83605; 83735; 84100; 84145; 84439; 84478; 84484; 85025; 85027; 85379; 87040; 93005; 93010; 93306; 93970; 94660; 94762; 96365-59; 96375-59; 96376-59; 99285-25; A9270; C1751; J0360; J1100; J1650; J1815; J1956; J2060; J2405; J2930; J3480; J7042; J7050; J7060; J7070; J7120